=== PATIENT | female | born 1955 | race Caucasian/White ===

== ENCOUNTER 2022-07-13 09:41 | Outpatient (CLI) | payer MEDICARE, SELFPAY ==
[2022-07-13 12:48] LABS: Potassium 3.9 mmol/L (3.4-5.0)
[2022-07-13 12:53] LABS: Alanine Aminotransferase 22 U/L (6-35); Albumin Level 4.2 g/dL (3.5-5.1); Alkaline Phosphatase 54 U/L (38-126); Anion Gap 5 mmol/L (8-16); Aspartate Amino Transferase 46 U/L (14-36); Bilirubin,Total 0.4 mg/dL (0.2-1.3); Blood Urea Nitrogen 21 mg/dL (7-17); Calcium 9.3 mg/dL (8.4-10.2); Carbon Dioxide 33 mmol/L (22-30); Chloride 102 mmol/L (98-107); Cholesterol 178 mg/dL (0-200); Estimated Glomerular Filt Rate > 60; Glucose 83 mg/dL (65-110); HDL Direct 72 mg/dL; Sodium 140 mmol/L (137-145); Triglycerides 55 mg/dL (<150)
[2022-07-13 13:00] LABS: LDL Cholesterol Direct 76 mg/dL
== END 2022-07-13 09:42 | disposition home or self-care (01) ==
LOC: ANHGOSHLAB 09:43
PROVIDERS: PCP Family Medicine; Visit Provider Family Medicine
DX: E78.5 Hyperlipidemia, unspecified (principal); Z13.228 Encounter for screening for other metabolic disorders
CPT/HCPCS: 36415; 80053; 80061

== ENCOUNTER → 2023-01-15 10:34 | Outpatient (CLI) | payer MEDICARE, SELFPAY ==
--- NOTE | ~2023-01-15 | CT_ITS ---
EXAMINATION: CT lung screening DATE: 01/15/2023 10:50 INDICATION: Z87.891 - Personal history of nicotine dependence TECHNIQUE: Computed tomography (CT) of the chest was performed without intravenous contrast. Addition al 3D reconstructions utilizing coronal maximum intensity projection (MIP) were performed. Automated exposure control and iterative reconstruction technique were employed. The dose-length product was 86 .58 mGy-cm. COMPARISON: None FINDINGS: Minimal biapical pleural-parenchymal scarring. 13 x 8 x 6 mm nodular opacity at the posterior sulcus of the left lower lobe most likely representing a small region of round atelectasis immediately adjac ent to a small fat-containing diaphragmatic hernia. Unchanged band of right middle lobe discoid atele ctasis/scarring along the medial side of the major fissure. Additional small amount atelectasis/scarr ing in the anterior right upper lobe along side the minor fissure. A few tiny <4 mm and a 6 mm subsol id nodule cluster in the anterior segment of the left upper lobe. Additional 6 mm groundglass nodule with associated bronchiectasis in the posterior segment of the left upper lobe. No pulmonary edema, p leural effusion or pneumothorax. Heart size is normal. Atherosclerotic coronary artery calcific lesio n. No pericardial effusion. Thoracic aorta is normal in caliber. No pathologically enlarged thoracic lymphadenopathy. Visualized upper abdomen is unremarkable. Mild S-shaped curvature of the thoracic sp ine with mild to moderate spondylosis. IMPRESSION: 1. Lung-RADS category 4A: (Suspicious, 5-15% chance of malignancy) based upon the 13 x 8 x 6 mm left lower lobe nodule. Given the immediately adjacent small fat-containing diaphragmatic hernia however, suspect that this most likely represents associated round atelectasis/scarring. Recommend 3 month fol low-up low-dose noncontrast chest CT . Reviewed, dictated and finalized at location A. IMPRESSION: 1. Lung-RADS category 4A: (Suspicious, 5-15% chance of malignancy) based upon t he 13 x 8 x 6 mm left lower lobe nodule. Given the immediately adjacent small f at-containing diaphragmatic hernia however, suspect that this most likely repre sents associated round atelectasis/scarring. Recommend 3 month follow-up low-do se noncontrast chest CT .
== END ==
PROVIDERS: PCP Family Medicine; Visit Provider Family Medicine
DX: Z12.2 Encounter for screening for malignant neoplasm of respiratory organs (principal); Z87.891 Personal history of nicotine dependence; R91.8 Other nonspecific abnormal finding of lung field
CPT/HCPCS: 71271

== ENCOUNTER 2023-03-11 08:36 | Outpatient (CLI) | payer MEDICARE, SELFPAY | END 2023-03-11 08:37 | disposition home or self-care (01) | LOC: ANHAUDIO 08:37 | PROVIDERS: PCP Family Medicine; Visit Provider Family Medicine | DX: H90.3 Sensorineural hearing loss, bilateral (principal) | CPT/HCPCS: 92557; 92567 ==

== ENCOUNTER → 2023-06-07 10:39 | Outpatient (CLI) | payer MEDICARE, SELFPAY ==
--- NOTE | ~2023-06-07 | CT_ITS ---
EXAMINATION: CT chest high resolution wo co DATE: 06/07/2023 10:59 INDICATION: R91.8 - Other nonspecific abnormal finding of lung field TECHNIQUE: Computed tomography (CT) of the chest was performed without intravenous contrast. Addition al 3D reconstructions utilizing coronal maximum intensity projection (MIP) were performed. Automated exposure control and iterative reconstruction technique were employed. The dose-length product was 16 3.02 mGy-cm. COMPARISON: 01/15/2023 FINDINGS: Unchanged mild biapical pleural-parenchymal scarring. Unchanged small regions of atelectasis and asso ciated mild bronchiectasis at the medial aspect of the right middle lobe and lingula. Near-complete r esolution of the previously noted nodular opacity at the right posterior sulcus with small amount of residual groundglass opacity dislocation likely representing improvement in atelectasis related to a small fat-containing posterior diaphragmatic hernia. Similarly there are small focus of groundglass o pacity at the site of prior more solid-appearing nodular opacities at the anterior right middle lobe which also likely represent atelectasis. Additional interval decrease in cluster of small nodules in the anterior and posterior segments of the left upper lobe. No pulmonary edema or pleural effusion. H eart size is normal. Atherosclerotic coronary artery calcifications. No pericardial effusion. Thoraci c aorta is normal in caliber. No pathologically enlarged thoracic lymphadenopathy. Visualized upper a bdomen is unremarkable. Mild S-shaped curvature of the thoracic spine with mild to moderate spondylos is. IMPRESSION: 1. Near complete resolution of a prior solid nodular opacity at the posterior sulcus of the left lowe r lobe with small amount of residual groundglass opacity suggesting this represented atelectasis. [facility] with low-dose noncontrast chest CT. Reviewed, dictated and finalized at location A. CT[facility] WELDER IMPRESSION: 1. Near complete resolution of a prior solid nodular opacity at the posterior s ulcus of the left lower lobe with small amount of residual groundglass opacity suggesting this represented atelectasis. Recommend resuming annual screening wi low-dose noncontrast chest CT.
== END ==
PROVIDERS: PCP Family Medicine; Visit Provider Family Medicine
DX: R91.8 Other nonspecific abnormal finding of lung field (principal)
CPT/HCPCS: 71250

== ENCOUNTER 2023-07-29 12:34 | Outpatient (CLI) | payer MEDICARE, SELFPAY ==
[2023-07-29 15:58] LABS: Alanine Aminotransferase 15 U/L (6-35); Albumin Level 4.3 g/dL (3.5-5.1); Alkaline Phosphatase 49 U/L (38-126); Anion Gap 5 mmol/L (8-16); Aspartate Amino Transferase 60 U/L (14-36); Bilirubin,Total 0.7 mg/dL (0.2-1.3); Blood Urea Nitrogen 22 mg/dL (7-17); Calcium 9.6 mg/dL (8.4-10.2); Carbon Dioxide 30 mmol/L (22-30); Chloride 103 mmol/L (98-107); Cholesterol 193 mg/dL (0-200); Estimated Glomerular Filt Rate > 60; Glucose 77 mg/dL (65-110); HDL Direct 73 mg/dL; Potassium 4.1 mmol/L (3.4-5.0); Sodium 138 mmol/L (137-145); Triglycerides 89 mg/dL (<150)
[2023-07-29 16:09] LABS: LDL Cholesterol Direct 102 mg/dL
== END 2023-07-29 12:35 | disposition home or self-care (01) ==
LOC: ANHGOSHLAB 12:36
PROVIDERS: PCP Family Medicine; Visit Provider Family Medicine
DX: I10 Essential (primary) hypertension (principal); Z13.220 Encounter for screening for lipoid disorders; Z13.228 Encounter for screening for other metabolic disorders
CPT/HCPCS: 36415; 80053; 80061

== ENCOUNTER 2023-09-16 15:26 | Outpatient (CLI) | payer MEDICARE, SELFPAY ==
--- NOTE | ~2023-09-16 | XR_ITS ---
EXAMINATION: [id number] DATE: 09/16/2023 15:56 INDICATION: Neck pain. TECHNIQUE: 3 views of cervical spine on 4 radiographs were obtained. COMPARISON: None. FINDINGS: There is 4 degrees dextrocurvature of cervical spine. Vertebral body heights are normal. Th ere is moderately decreased disc height at C5-C6 and severely decreased disc height at C6-C7. There i s multilevel severe facet joint osteoarthritis. There is ankylosis of the facet joints at C6-C7. Ther e is mild central canal stenosis at C5-C6. No prevertebral soft tissue swelling. IMPRESSION: 1. Moderate cervical spondylosis. Reviewed, dictated and finalized at location E.
== END 2023-09-16 15:27 ==
PROVIDERS: PCP Family Medicine; Visit Provider Nurse Practitioner
DX: M54.2 Cervicalgia (principal); M43.02 Spondylolysis, cervical region
CPT/HCPCS: 72040

== ENCOUNTER 2024-06-29 01:32 | Day surgery (SDC) | payer MEDICARE, SELFPAY ==
[2024-06-19 12:29] VITALS: BMI 21.2
--- NOTE | 2024-06-26 16:09 | PC.NURSE ---
Spoke with _patient_ regarding medication _Eliquis. Patient verbalizes understanding that the last dose is to be taken on 06/26/24 however she spoke with Dr. Jenkins on Wednesday06/23/24 and he told her she could start holding on Wednesday so she has not taken since sarahy. dose 06/23/24 and the Endoscopist will instruct them when to restart after the procedure.
--- OUTSIDE RECORDS SUMMARY | 2024-06-29 01:34 | XMS_ITS | CONTINUITY OF CARE DOCUMENT ---
Author Name bruno carr Address Unknown Organization [facility] Address [address] [place] [address] Phone [phone] Care Team Providers Care Victorian Literature Professor Name Role Phone Kristopher Plummer MD Unavailable WHIT KAISER DO Unavailable WHIT KAISER DO Unavailable [phone] PROBLEMS Condition Status Date Provider Notes Preoperative cardiovascular evaluation active Whit Alicia Exposure to SARS-associated coronavirus active Lovely Lively Palpitations active Armin Fragoso Chest discomfort active Armin Fragoso Tobacco abuse--quit active Juan Johnstonzai SVT active Armin Fragoso Poor sleep hygiene active Armin Fragoso Hyperlipidemia active Armin Fragoso Atrial fibrillation active Mcihelle Wong NP Anxiety active Michelle Wong NP Carotid bruit active Juan Ahmedzai Elevated blood pressure active Juan Ahmedza i ENCOUNTERS Date Type Provider Location Encounter Diag nosis - In-person encounter Office Visit Kristopher Plummer MD [facility] Tobacco abuse--quitElevated blood pressure - In-person encounter Office Visit Kristopher Plummer MD [facility] Carotid bruit - In-person encounter Office Visit Kristopher Plummer MD [facility] - In-person encounter Office Visit Kristopher Plummer MD [facility] - In-person encounter Office Visit Kristopher Plummer MD [facility] Atrial fibrillationAnxiety - In-person encounter Office Visit Kristopher Plummer MD [facility] - In-person encounter Office Visit Kristopher Plummer MD [facility] - In-person encounter Office Visit Kristopher Plummer MD [facility] PalpitationsChest discomfortTobacco abuse--quitSVTPoor sleep hygieneHyperlipidemia VITAL SIGNS Date Observation Value Provider Body Mass Index (Ratio) 21.43 kg/m2 Mike Plummer MD blood pressure, cuff size regular Ke rri Grrenaldonftiffanie blood pressure, diastolic 90 mm[Hg] Ke rri Bandar blood pressure, systolic 154 mm[Hg] Luis ri Bandar oxygen saturation, oximetry 97 % Ashwini Bandar pulse rate 63 /min Ashwini Jannie [facility] weight E&M 121 [lb_av] Ashwini Jannie [facility] height E&M 63 [in_i] Ashwini Jannie [facility] Body Mass Index (Ratio) 20.72 kg/m2 Juan Cullen blood pressure, cuff size regular Ke rri Gruenenfelder blood pressure, diastolic 70 mm[Hg] Ke rri Gruenenfelder blood pressure, systolic 130 mm[Hg] Luis ri Gruenenfeldreba oxygen saturation, oximetry 97 % Ashwini Elynereji respiratory rate E&M 12 /min Ashwini G ruenenfelder pulse rate 72 /min Ashwini Grmariiae lder weight E&M 117 [lb_av] Ashwini Gruenenfe lder height E&M 63 [in_i] Ashwini Gruenenfe er Body Mass Index (Ratio) 19.66 kg/m2 Camryn alegria Lobo blood pressure, cuff size regular Ke rri Gruenenfelder blood pressure, diastolic 71 mm[Hg] Ke rri Gruenenfelder blood pressure, systolic 111 mm[Hg] Luis ri Gruenenfelder oxygen saturation, oximetry 97 % Ashwini Grpandanevazquezelder respiratory rate E&M 14 /min Ashwini G candaceenenfelder pulse rate 68 /min Ashwini Grpandanenfe er weight E&M 111 [lb_av] Ashwini Grmariiae [facility] height E&M 63 [in_i] Ashwini Grpandanevazqueze er Body Mass Index (Ratio) 20.90 kg/m2 [place] blood pressure, diastolic 70 mm[Hg] nkLog blood pressure, systolic 112 mm[Hg] [place] kLogic blood pressure, cuff size regular Ke rri Gruenenfelder blood pressure, diastolic 70 mm[Hg] Ke rri Gruenenfelder blood pressure, systolic 112 mm[Hg] Luis ri Gruenenfelder oxygen saturation, oximetry 98 % Ashwini Gruenenfelder respiratory rate E&M 14 /min Ashwini G ruenenfelder pulse rate 82 /min Ashwini Gruenenfe er weight E&M 118 [lb_av] Ashwini Gruenenfe lder height E&M 63 [in_i] Ashwini Gruenenfe er Body Mass Index (Ratio) 20.90 kg/m2 Steve dent Maral blood pressure, diastolic 72 mm[Hg] Li nkLogic blood pressure, systolic 112 mm[Hg] [place] kLogic blood pressure, cuff size regular Ke rri Gruenenfelder blood pressure, diastolic 72 mm[Hg] Ke rri Gruenenfelder blood pressure, systolic 112 mm[Hg] Luis ri Gruenenfelder oxygen saturation, oximetry 98 % Ashwini Gruenenfelder respiratory rate E&M 16 /min Ashwini Perdue [facility] pulse rate 91 /min Ashwini Grpandanenfe er weight E&M 118 [lb_av] Ashwini Gruenenfe er height E&M 63 [in_i] Ashwini Gruenenfe er Body Mass Index (Ratio) 21.61 kg/m2 [place] blood pressure, diastolic 60 mm[Hg] Li nkLogic blood pressure, systolic 110 mm[Hg] [place] kLogic blood pressure, diastolic 60 mm[Hg] Ahsan Alejandroenson blood pressure, systolic 110 mm[Hg] Alannah Garcia oxygen saturation, oximetry 97 % Home Garcia respiratory rate E&M 16 /min Harsh Garcia pulse rate 67 /min Home neves weight E&M 122 [lb_av] HomeGia Zelaya nson height E&M 63 [in_i] Home neves Body Mass Index (Ratio) 21.61 kg/m2 [place] /21 blood pressure, cuff size regular Cy christal Sotelo blood pressure, diastolic 64 mm[Hg] Jd Sotelo blood pressure, systolic 118 mm[Hg] Chen Sotelo pulse rate 100 /min Maureen way oxygen saturation, oximetry 97 % Maureen Sotelo respiratory rate E&M 16 /min Maureen Sotelo weight E&M 122 [lb_av] Maureen Rivera l height E&M 63 [in_i] Maureen Rivera l weight E&M 122 [lb_av] Yamilet Potter Body Mass Index (Ratio) 21.61 kg/m2 [place] blood pressure, cuff size regular Ke rri Gruenenfelder blood pressure, diastolic 72 mm[Hg] Ke rri Gruenenfelder blood pressure, systolic 122 mm[Hg] Ker ri Padmininfelder oxygen saturation, oximetry 97 % Ashwini Bandar respiratory rate E&M 16 /min Ashwini Iron turcioseldreba pulse rate 108 /min Ashwini Padmininfe lder weight E&M 122 [lb_av] Ashwini Elynenfe lder height E&M 63 [in_i] Ashwini Gruenenfe lder ALLERGIES No Known Drug Allergies RESULTS Date Observation Value Provider Reference Range Interpretation Location 3 activated partial thromboplastin time (aPTT) 25 s [facility] 24-33 3 prothrombin time (patient) 10.4 s [facility] 9.1-12.0 3 international normalized ratio (INR) 1.0 [facility] 0.9-1.2 3 calcium, serum 9.9 mg/dL [facility] 8.7-10.3 3 carbon dioxide, venous blood 26 mmol/L [facility] 20-29 3 chloride, serum 105 mmol/L [facility] 96-106 3 potassium, serum 4.1 mmol/L [facility] 3.5-5.2 3 sodium, serum 143 mmol/L [facility] 680-229 1912/06/0 3 urea nitrogen/creatinine ratio, serum 13 [facility] 12-28 3 eGFR if 75 mL/min/{1. 73_m2} [facility] >59 3 eGFR if not 65 mL/min/{1. 73_m2} [facility] >59 3 creatinine, serum 0.92 mg/dL [facility] 0.57-1.00 3 urea nitrogen, blood 12 mg/dL [facility] 8-27 3 blood glucose, random 81 mg/dL [facility] 65-99 3 basophil count, absolute 0.0 x10E3/uL [facility] 0.0-0.2 3 Eosinophil Absolute Count 0.2 X10E3/UL [facility] 0.0-0.4 3 monocyte count, blood, automated 0.4 X10E3/UL [facility] 0.1-0.9 3 lymphocyte count, blood, automated 2.0 X10E3/UL [facility] 0.7-3.1 3 Absolute Neutrophils 2.4 X10E3/UL [facility] 1.4-7.0 3 basophils as percent of blood leukocytes 1 % [facility] Not Estab. 3 eosinophils as percent of blood leukocytes 3 % [facility] Not Estab. 3 monocytes as percent of blood leukocytes 8 % [facility] Not Estab. 3 lymphocytes as percent of blood leukocytes 40 % [facility] Not Estab. 3 neutrophils as percent of blood leukocytes 48 % [facility] Not Estab. 3 platelet count 277 X10E3/UL [facility] 107-782 2278/06/0 3 red blood cell distribution width 12.8 % [facility] 11.7-15.4 3 mean corpuscular hemoglobin concentration, RBC 32.4 G/DL [facility] 31.5-35.7 3 mean corpuscular hemoglobin, RBC 29.4 pg [facility] 26.6-33.0 3 mean corpuscular volume, RBC 91 fL [facility] 79-97 3 hematocrit, blood 44.5 % [facility] 34.0-46.6 3 hemoglobin, blood 14.4 g/dL [facility] 11.1-15.9 3 erythrocyte (RBC) count 4.90 X10E6/UL [facility] 3.77-5.28 3 leukocyte count, blood 4.9 X10E3/UL [facility] 3.4-10.8 HISTORY OF MEDICATION USE Medication Status Instructions Dates Provider Indications Com ments magnesium oxide 400 mg (241.3 mg magnesium) tablet active TAKE 1 TABLET TWICE DAILY Debra Rushing Eliquis 5 mg tablet active Take 1 tablet by mouth twice a day Ashwini Portillo magnesium oxide 400 mg (241.3 mg magnesium) tablet completed Take 1 tablet by mouth twice a day - Debra Rushing losartan 25 mg tablet active Take 1 tablet by mouth once a day Juan Lairdi Eliquis 5 mg tablet completed TAKE 1 TABLET TWICE DAILY - Ashwini Portillo magnesium oxide 400 mg (241.3 mg magnesium) tablet completed TAKE 1 TABLET TWICE DAILY - Ashwini Portillo pantoprazole 40 mg tablet,delayed release (DR/EC) active as needed Juan Cullen diltiazem HCl 30 mg tablet active TAKE 1 TABLET EVERY 12 HOURS ( TWICE DAILY ) Ashwini Portillo Eliquis 5 mg tablet completed Take 1 tablet twice a day - Michelle Wong NP diltiazem HCl 30 mg tablet completed 1 tablet by mouth twice a day - Arcelia Bermeo NP magnesium oxide 400 mg (241.3 mg magnesium) tablet completed 1 tablet twice a day - Whit Dicksonmelissa ASPIRIN 81 81 MG ORAL TABLET DELAYED RELEASE completed One Tab By Mouth Daily - Home Garcia cholecalciferol (vitamin D3) 125 mcg (5,000 unit) capsule active 1 tablet by mouth once a day Ashwini Portillo MULTIVITAMINS CAPS active 1 tablet once a day Ashwini Portillo Lexapro 10 mg tablet active once a day Ashwini Portillo alprazolam 0.5 mg tablet completed Take 1 tablet by mouth twice a day as needed - Michelle Wong NP Crestor 10 mg tablet active 1 tablet once a day Ashwini Portillo SOCIAL HISTORY Date Observation Value Provider smoking/tobacco cess ation, patient education and counseling yes Juan ish smoking, year quit [address] number of years as a smoker 40 a Juan ish smoking history, tot al pack/day 1/2 ppd Juan ish cigarette use yes Juan ish smoking status Current every day smoker R anna Cullen social history reviewed E&M revi ewed - no changes required Juan Cullen social history E&M S moking History: P atient currently smokes every day. Juan Cullen social history reviewed E&M revi ewed - no changes required Juan ish cigarette use yes Ashwini abraham smoking status Current every day smoker K emerald Portillo smoking/tobacco cess ation, patient education and counseling yes Ashwini Portillo smoking, year quit 2020 Ashwini velazquez number of years as a smoker 40 a Ashwini Portillo smoking history, tot al pack/day 1/2 ppd Ashwini Portillo cigarette use yes Ashwini abraham smoking status Current every day smoker K emerald Portillo smoking, year quit 2020 Ashwini velazquez number of years as a smoker 40 a Ashwini Portillo smoking history, tot al pack/day 1/2 ppd Ashwini Portillo cigarette use yes Ashwini abraham smoking status Current every day smoker K emerald Portillo social history reviewed E&M revi ewed - no changes required Arcelia Bermeo NP smoking, year quit 2020 Home Garcia number of years as a smoker 40 a Home Garcia smoking history, tot al pack/day 1/2 ppd Home Garcia cigarette use yes Home Alejandro jericho smoking status Former smoker Home Bravo camilo number of grandchildren Kristopher Alicia social history E&M S moking History: P micky currently smokes every day. P atleno has been counseled to quit. Whit Alicia social history reviewed E&M revi ewed - no changes required Whit Alicia smoking/tobacco cess ation, patient education and counseling yes Whit Alicia number of years as a smoker 40 a Maureen Sotelo smoking history, tot al pack/day 1/2 ppd Maureen Sotelo cigarette use yes Maureen hawley smoking status Current every day smoker C brianasusi Deepak social history E&M S moking History: Oz weeks currently smokes every day. Armin [place] social history reviewed E&M revi ewed - no changes required Armin Fragoso number of years as a smoker 40 a Ashwini Moralesrenaldovazqueztiffaniereba smoking history, tot al pack/day 1/2 ppd Ashwini Portillo cigarette use yes Ashwini abraham smoking status Current every day smoker K emerald Rocreba INSURANCE PROVIDERS Payer name Policy type / Coverage type [employer] PPO HMO [id number] ADVANCE DIRECTIVES Name Date DISCUSSED - NO DECISION MADE TREATMENT PLAN Date Name Performer [id number],C,P micky was advised to stop smoking. [facility] [id number],C, n o episodes [facility] [id number],C, H er updated medication list for this problem includes: Crestor 10 Mg Tablet (Rosuvastatin) ..... 1 tablet once a day [facility] [id number],C,r are episodes [facility] [id number],C, N ormal routine stress test with good exercise capacity 10/02/20. E cho EF normal 2021 She denies any chest pain [facility] [id number],C, s /p EPS with ablation 2020. Remains in NSR. Eliquis for AC. She wore holter, pending results [facility] [id number],C, H er updated medication list for this problem includes: Crestor 10 Mg Tablet (Rosuvastatin) ..... 1 tablet once a day Juan Johnstonzai [id number],C,No sxs curren rk Laird [id number],C, N ormal routine stress test with good exercise capacity 10/02/20. She denies any chest pain Juan estrella [id number],C,None seen on recent tele Juanyolanda Laird [id number],C, s /p EPS with ablation. Remains in NSR. Eliquis for AC. Juan Cullen [id number],S,R epeat monitor in one year. Her updated medication list for this problem includes: Diltiazem Hcl 30 Mg Tablet (Diltiazem hcl) ..... 1 tablet by mouth twice a day Michelle Marvin WAITE [id number],S, Michelle Rouse [place] POOLING OPERATOR [id number],S, Michelle Rouse [place] POOLING OPERATOR [id number],B, Michelle Rouse [place] POOLING OPERATOR [id number],C,will refill o ne month Xanax Michelle Wong RAVINDRA [id number],C,s /p EPS with ablation. Remains in NSR. Eliquis for AC. Will check one week monitor. No evidence of an aneurysm of the abdominal aorta and common iliac arteries. Plaque is demonstrated throughout Michelle Marvin WAITE [id number],S, Michelle Rouse [place] POOLING OPERATOR [id number],S,T he Patient was reencouraged to stop smoking. Michelle Marvin WAITE [id number],C, C essation strongly encouraged. Armin Fragoso [id number],C, N ormal routine stress test with good exercise capacity 10/02/20. Armin Fragoso [id number],B, T oscar monitor showed SR with SVT. S /p EPS and ablation for clearly documented multiple recurrences of arrhythmia. Found to be in atrial fibrillation during procedure and underwent synchronized cardioversion prior to ablation w/o complication Diltiazem 30mg BID, eliquis SR on EKG today Armin Fragoso [id number],B,Resolved post ablation and EPS Arcelia Bermeo POOLING OPERATOR [id number],B, T oscar monitor showed SR with SVT. S /p EPS and ablation for clearly documented multiple recurrences of arrhythmia. Diltiazem 30mg BID, eliquis SR on EKG today Arcelia Bermeo POOLING OPERATOR Telehealth - Cleared for colonoscopy. letter to be sens MARTHA Whit Alicia Telehealth - Cleared for colonoscopy. letter to be sens MARTHA: c leared for colonbsocopy h old eliquis starting today Whit Alicia Electrophysiology:Sh graham has mild regurgitation on Echo today, BP elevated as well, will start Losartan 25 mg for BP control. Kristopher Plummer MD Electrophysiology: n o episodes Her updated medication list for this problem includes: Diltiazem Hcl 30 Mg Tablet (Diltiazem hcl) ..... Take 1 tablet every 12 hours ( twice daily ) Kristopher Plummer MD Electrophysiology:Ex tensive review of the pertinent previous and curent labs , EKGs, cardiac tesing and imaging data was done by Dr. Elian Mak his visit has been a part of the consistent, comprehensive, and ongoing management of the chronic medical condition(s) listed above for the patient. s/p EPS with ablation 2020. Remains in NSR. Eliquis for AC. Orders: E KG (CPT-79802) M onitor - Telemetry (Mobile Cardiac) (CPT-58742) A trista Duplex Ultrasound (CPT-45376) 9 7567 MOD 30-39min (CPT-42222) C omplex e/m visit add on (G2211) Kristopher Plummer MD Electrophysiology:Sh e has mild regurgitation on Echo today, BP elevated as well, will start Losartan 25 mg for BP control. Orders: C omplete Echo (86340) A trista Duplex Ultrasound (CPT-99763) 9 9214 MOD 30-39min (CPT-91700) C omplex e/m visit add on (G2) Juan Johnstonzai Electrophysiology: H er updated medication list for this problem includes: Crestor 10 Mg Tablet (Rosuvastatin) ..... 1 tablet once a day Juanyolanda Johnstonzai [facility] r are [facility]: N ormal routine stress test with good exercise capacity 10/02/20. E cho EF normal 2021 She denies any chest pain [facility]: n o episodes Orders: M onitor - Telemetry (Mobile Cardiac) (CPT-78478) A trista Duplex Ultrasound (CPT-82653) 9 9214 MOD 30-39min (CPT-10483) C omplex e/m visit add on (G2) Juan Johnstonzai Electrophysiology:Th is visit has been a part of the consistent, comprehensive, and ongoing management of the chronic medical condition(s) listed above for the patient. s/p EPS with ablation 2020. Remains in NSR. Eliquis for AC. Orders: E KG (CPT-92585) M onitor - Telemetry (Mobile Cardiac) (CPT-05656) A trista Duplex Ultrasound (CPT-54848) 9 9214 MOD 30-39min (CPT-48821) C omplex e/m visit add on () Juan Johnstonzai Electrophysiology:Maxx qureshi was advised to stop smoking. [facility] n o episodes [facility]: H er updated medication list for this problem includes: Crestor 10 Mg Tablet (Rosuvastatin) ..... 1 tablet once a day [facility]ra re episodes [facility]: N ormal routine stress test with good exercise capacity 10/02/20. E cho EF normal 2021 She denies any chest pain [facility]: s /p EPS with ablation 2020. Remains in NSR. Eliquis for AC. She wore holter, pending results [facility] Electrophysiology: H er updated medication list for this problem includes: Crestor 10 Mg Tablet (Rosuvastatin) ..... 1 tablet once a day [facility] Electrophysiology:No sxs current ly [facility] Electrophysiology: N ormal routine stress test with good exercise capacity 10/02/20. She denies any chest pain [facility] Electrophysiology:None seen on r ecent tele [facility] Electrophysiology: s /p EPS with ablation. Remains in NSR. Eliquis for AC. [facility] Electrophysiology:Re peat monitor in one year. Her updated medication list for this problem includes: Diltiazem Hcl 30 Mg Tablet (Diltiazem hcl) ..... 1 tablet by mouth twice a day Michelle Wong NP Electrophysiology Michelle hu NP Electrophysiology Michelle hu NP Electrophysiology Michelle Napoleon hu NP Electrophysiology Fo llow up :will refill one month Xanax Michelle Wong NP Electrophysiology Fo llow up :s/p EPS with ablation. Remains in NSR. Eliquis for AC. Will check one week monitor. No evidence of an aneurysm of the abdominal aorta and common iliac arteries. Plaque is demonstrated throughout Michelle Wong NP Electrophysiology Follow up Masood Wong NP Electrophysiology Fo llow up :The Patient was reencouraged to stop smoking. Michelle Wong NP Electrophysiology: C essation strongly encouraged. Armin Fragoso Electrophysiology: N ormal routine stress test with good exercise capacity 10/02/20. Armin Fragoso Electrophysiology: T oscar monitor showed SR with SVT. S /p EPS and ablation for clearly documented multiple recurrences of arrhythmia. Found to be in atrial fibrillation during procedure and underwent synchronized cardioversion prior to ablation w/o complication Diltiazem 30mg BID, eliquis SR on EKG today Armin Fragoso Electrophysiology:Resolved post ablation and EPS Arcelia Bermeo POOLING OPERATOR Electrophysiology: T oscar monitor showed SR with SVT. S /p EPS and ablation for clearly documented multiple recurrences of arrhythmia. Diltiazem 30mg BID, eliquis SR on EKG today Arcelia Bermeo POOLING OPERATOR Electrophysiology fo llow up : T oscar monitor showed SR with SVT. Will arrange for pre-ablation CT and EP study with ablation for clearly documented multiple recurrences of arrhythmia. Her updated medication list for this problem includes: Diltiazem Hcl 30 Mg Oral Tablet (Diltiazem hcl) ..... One tab by mouth every 8 hours (three times daily) Aspirin 81 81 Mg Oral Tablet Delayed Release (Aspirin) ..... One tab by mouth daily Orders: 9 9214 MOD 30-39min (CPT-15476) C T Cardiac with contrast (Pre-Ablation) (CPT-97145) Armin Fragoso Electrophysiology fo llow up : C essation strongly encouraged. Whit Alicia Electrophysiology fo llow up : N o JACINTA on sleep study 10/14/20. Whit Alicia Electrophysiology fo llow up : N ormal routine stress test with good exercise capacity 10/02/20. Whit Alicia Electrophysiology Ho spital Follow up 15: p oor quality of sleep, frfequent awaekinings, fatigue O rders: S leep Study Home (CPT-17541) Vickikristal [place] Electrophysiology Ho spital Follow up 15: H er updated medication list for this problem includes: Diltiazem Hcl 30 Mg Oral Tablet (Diltiazem hcl) ..... One tab by mouth every 8 hours (three times daily) Aspirin 81 81 Mg Oral Tablet Delayed Release (Aspirin) ..... One tab by mouth daily Orders: E KG (CPT-67347) S tress Routine (CPT-12087) M onitor - Telemetry (Mobile Cardiac) (CPT-74829) Alejobaljit [place] Elect[facility]iology Ho spital Follow up 15: f ound to have SVT in ER, resolved with diltiazm S tart diltiazem 30 tid and see if she tolerates Her updated medication list for this problem includes: Diltiazem Hcl 30 Mg Oral Tablet (Diltiazem hcl) ..... One tab by mouth every 8 hours (three times daily) Aspirin 81 81 Mg Oral Tablet Delayed Release (Aspirin) ..... One tab by mouth daily Orders: S tress Routine (CPT-02025) M onitor - Telemetry (Mobile Cardiac) (CPT-22825) Armin [place] Date Name Aorta Duplex Ultraso und Carotid Duplex Bilat eral Complete Echo Monitor - Telemetry (Mobile Cardiac) Complete Echo Complete Echo Carotid Duplex Bilat eral Monitor - Telemetry (Mobile Cardiac) Aorta Duplex Ultraso und Complete Echo MAGNESIUM TSH, free T4, total T3 CBC (INCLUDES DIFF/P LT) HEMOGLOBIN A1c LIPID PANEL COMPREHENSIVE METABO LIC PANEL, W/EGFR Monitor - Telemetry (Mobile Cardiac) Monitor - Telemetry (Mobile Cardiac) COVID19 nasal swab ( LC) PARTIAL THROMBOPLAST IN TIME, ACTIVATED PROTHROMBIN TIME WIT H INR CBC (INCLUDES DIFF/P LT) BASIC METABOLIC PANE L W/EGFR ABLATION w/ Anesthes ia EP Study CT Cardiac with cont rast (Pre-Ablation) Monitor - Telemetry (Mobile Cardiac) Stress Routine Sleep Study Home HISTORY OF PROCEDURES Procedure Date Procedure Name Provider Procedure Notes S tatus Complex e/m visit ad d on Kristopher Plummer MD completed Complex e/m visit ad d on Kristopher Plummer MD completed EKG Kristopher Pulmmer MD comp leted EKG Kristopher Plummer MD comp leted EKG Kristopher Plummer MD comp leted EKG Kristopher Plummer MD comp leted EKG Kristopher Plummer MD comp leted Event Monitor Kristopher Plummer MD c ompleted EKG Kristopher Plummer MD comp leted EKG Kristopher Plummer MD comp leted
[2024-06-29 10:06] VITALS: BP 109/89; PULSE 83; RESP 16; TEMP 36.6; O2SAT 99; BMI 20.7
--- NOTE | 2024-06-29 10:11 | P.PNAN_ITS ---
Anes - Initial Pre Proc Eval Procedure: Operation Date: 06/29/24 11:30 Proposed Procedures p Screening Colonoscopy - Watson Pimentel MD Date/Time: 06/29/24 10:11 Surgeon: Watson Pimentel MD Pre Op Diagnosis: screening malignant neoplasm colon Patient Data Age: 68 Gender: F Height: 1.6 m Weight: 53.1 kg Last Vital Signs Temp 36.6 C 06/29/24 10:06 Pulse 83 06/29/24 10:06 Resp 16 06/29/24 10:06 BP 109/89 06/29/24 10:06 Pulse Ox 99 06/29/24 10:06 O2 Del Method Room Air 06/29/24 10:06 Allergies Allergy/AdvReac Type Severity Reaction Status Date / Time oak tree Allergy Unknown Unknown Uncoded 06/29/24 10:04 Home Medications ?Medication ?Instructions ?Recorded ?Confirmed ?Type apixaban 5 mg tablet (Eliquis) 5 mg PO BID 07/11/21 06/29/24 History diltiazem HCl 30 mg tablet 30 mg PO BID 07/11/21 06/29/24 History magnesium oxide 400 mg (241.3 mg 400 mg PO BID 07/13/22 06/29/24 History magnesium) tablet calcium carbonate (Calcium 600) 600 mg PO BID 01/11/23 06/29/24 History cholecalciferol (vitamin D3) 25 25 mcg PO BID 01/11/23 06/29/24 History mcg (1,000 unit) capsule vvevhitt-xsclpyh-uztq-lutein tablet 1 tablet PO DAILY 01/11/23 06/29/24 History alendronate 70 mg tablet 70 mg PO WEEKLY 01/28/24 06/29/24 History alprazolam 0.5 mg tablet 0.5 mg PO DAILY #90 tabs 02/18/24 06/29/24 Rx escitalopram oxalate 10 mg tablet 10 mg PO DAILY #90 tabs 02/18/24 06/29/24 Rx rosuvastatin 10 mg tablet (Crestor) 10 mg PO DAILY #90 tabs 03/07/24 06/29/24 Rx losartan 25 mg tablet 25 mg PO DAILY 06/19/24 06/29/24 History Patient hx anesthesia problems: none Family hx anesthesia problems: none Results Review: All pre-operative results and documents have been reviewed as part of the pre- operative evaluation. [facility] Past Medical History Medical History (Updated 06/29/24 @ 10:11 by Toni Cox DO) Atrial fibrillation Hyperlipidemia Other hyperlipidemia Social History Social History Smoking status: Former smoker Second hand tobacco smoke exposure: No Alcohol intake: never Substance use: never Substance use type: does not use Lack of Transportation: No Lack of Food: Never True Current Housing: I Have Housing Concerned About Future Housing: No Difficulty Paying Gas/Electric Bills: No Difficulty Paying for Meds: No Currently Unemployed: No Education: High School Diploma/GED Difficulty w/ Childcare or Family Care: No Gender identity (if verbalized by the patient): Female Spiritual care concerns: No Anes - Eval Final PreProcedure Day of Procedure 06/29/24 10:11 Patient weight: normal Heart: regular rate and rhythm Lungs: clear to auscultation and normal air movement Airway: Mallampati scale class II Neurological: alert and oriented Last oral intake: >/= 8 hours ASA classification: III Emergent: no Anesthetic plan: proceed Anesthesia type and monitoring: general GIVS and standard monitoring Results Review: All pre-operative results and documents have been reviewed as part of the pre- operative evaluation. Informed Consent: The patient's anesthetic plan and its attendant risks and benefits were discussed with the patient/family/POA. Questions were solicited and answers provided to the satisfaction of the patient/family/POA.
[2024-06-29] MEDS: LACTATED RINGERS 1,000 ML 150 ML IV CONT (10:14)
--- NOTE | 2024-06-29 10:33 | PM.HPGS ---
History of Present Illness History of Present Illness Consent: Risks, benefits, and alternatives have been discussed and questions answered. Patient agrees to proceed with procedure. Chief complaint: screening malignant neoplasm colon Narrative: Sae Lindo is a 68 year old female here for screening colonoscopy, last one 10 years ago Review of Systems Review of Systems: All systems reviewed & are unremarkable except as noted in HPI and below PMFSH Past Medical History Medical History (Updated 06/29/24 @ 10:35 by Watson Pimentel MD) Colon cancer screening Atrial fibrillation Hyperlipidemia Other hyperlipidemia Social History Social History Smoking status: Former smoker Second hand tobacco smoke exposure: No Alcohol intake: never Substance use: never Substance use type: does not use Lack of Transportation: No Lack of Food: Never True Current Housing: I Have Housing Concerned About Future Housing: No Difficulty Paying Gas/Electric Bills: No Difficulty Paying for Meds: No Currently Unemployed: No Education: High School Diploma/GED Difficulty w/ Childcare or Family Care: No Gender identity (if verbalized by the patient): Female Spiritual care concerns: No Meds Home Medications and Allergies Home Medications ?Medication ?Instructions ?Recorded ?Confirmed ?Type apixaban 5 mg tablet (Eliquis) 5 mg PO BID 07/11/21 06/29/24 History diltiazem HCl 30 mg tablet 30 mg PO BID 07/11/21 06/29/24 History magnesium oxide 400 mg (241.3 mg 400 mg PO BID 07/13/22 06/29/24 History magnesium) tablet calcium carbonate (Calcium 600) 600 mg PO BID 01/11/23 06/29/24 History cholecalciferol (vitamin D3) 25 25 mcg PO BID 01/11/23 06/29/24 History mcg (1,000 unit) capsule rsvxemca-jmscrah-llrz-lutein tablet 1 tablet PO DAILY 01/11/23 06/29/24 History alendronate 70 mg tablet 70 mg PO WEEKLY 01/28/24 06/29/24 History alprazolam 0.5 mg tablet 0.5 mg PO DAILY #90 tabs 02/18/24 06/29/24 Rx escitalopram oxalate 10 mg tablet 10 mg PO DAILY #90 tabs 02/18/24 06/29/24 Rx rosuvastatin 10 mg tablet (Crestor) 10 mg PO DAILY #90 tabs 03/07/24 06/29/24 Rx losartan 25 mg tablet 25 mg PO DAILY 06/19/24 06/29/24 History Allergies Allergy/AdvReac Type Severity Reaction Status Date / Time oak tree Allergy Unknown Unknown Uncoded 06/29/24 10:04 Vital Signs Vital Signs - 24 hr 06/29/24 10:06 Temperature 97.9 F Pulse Rate 83 Respiratory Rate 16 Blood Pressure 109/89 Pulse Oximetry 99 Oxygen Delivery Room Air Exam Const: General: comfortable and no acute distress HENMT: Face/Nose/Sinus: Normal nares present Eyes: General: appearance normal, both eyes and all related structures Neck: Neck: no JVD Resp: Auscultation: clear to auscultation bilaterally Cardio: Rate: regular rate Rhythm: regular rhythm GI: Inspection: non-distended GI Palp: Yes Soft to palpation Skin: General skin exam: normal color Neuro: General: gait normal Speech: normal speech Extrem: General: normal to inspection Psych: Mental Status: mental status grossly normal Assessment and Plan Assessment and plan (1) Colon cancer screening: Code(s): Z12.11 - Encounter for screening for malignant neoplasm of colon Status: Acute Assessment and Plan: colonoscopy
[2024-06-29 10:46] VITALS: BP 94/59; PULSE 73; RESP 19; O2SAT 98
[2024-06-29 10:56] VITALS: BP 96/63; PULSE 74; RESP 18; O2SAT 99
[2024-06-29 11:06] VITALS: BP 123/98; PULSE 70; RESP 13; O2SAT 99
== END 2024-06-29 11:20 | disposition home or self-care (01) ==
PROVIDERS: PCP Nurse Practitioner; Referring Provider Family Medicine; Visit Provider Internal Medicine Gastroenterology
PROC: 0DJD8ZZ Inspection of Lower Intestinal Tract, Via Natural or Artificial Opening Endoscopic (ICD-10-PCS; CPT 45378; principal; 2024-06-29 11:30)
DX: Z12.11 Encounter for screening for malignant neoplasm of colon (principal)
CPT/HCPCS: G0121; J2704; J7120

== ENCOUNTER 2024-07-17 11:48 | Outpatient (CLI) | payer MEDICARE, SELFPAY ==
[2024-07-17 13:51] LABS: Hematocrit 42.3 % (37.0-47.0); Hemoglobin 13.4 g/dL (12.0-15.0); Mean Corpuscular HGB Conc 31.7 g/dl (32-36); Mean Corpuscular Hemoglobin 29.3 pg (26-34); Mean Corpuscular Volume 92.6 fl (80-100); Mean Platelet Volume 10.6 fl (7.4-10.4); Platelet Count Result 262 k/mm3 (150-375); Red Blood Count 4.57 M/mm3 (4.2-5.4); Red Cell Distribution Width 13.3 % (11.5-14.5); White Blood Count 5.2 K/mm3 (4.5-10.0)
[2024-07-17 14:46] LABS: Alanine Aminotransferase 19 U/L (6-35); Albumin Level 4.5 g/dL (3.5-5.1); Alkaline Phosphatase 40 U/L (38-126); Anion Gap 5 mmol/L (4-12); Aspartate Amino Transferase 34 U/L (14-36); Bilirubin,Total 0.6 mg/dL (0.2-1.3); Blood Urea Nitrogen 18 mg/dL (7-17); Carbon Dioxide 34 mmol/L (22-30); Chloride 103 mmol/L (98-107); Cholesterol 185 mg/dL (0-200); Estimated Glomerular Filt Rate > 60; Glucose 85 mg/dL (65-110); HDL Direct 87 mg/dL; Potassium 4.5 mmol/L (3.4-5.0); Sodium 142 mmol/L (137-145); Triglycerides 88 mg/dL (<150)
[2024-07-17 14:58] LABS: LDL Cholesterol Direct 84 mg/dL
[2024-07-17 15:46] LABS: Vitamin D 25 Hydroxy 63.6 ng/mL
== END 2024-07-17 11:49 | disposition home or self-care (01) ==
LOC: ANHGOSHLAB 11:49
PROVIDERS: PCP Family Medicine; Visit Provider Nurse Practitioner
DX: E78.5 Hyperlipidemia, unspecified (principal); E78.00 Pure hypercholesterolemia, unspecified; E55.9 Vitamin D deficiency, unspecified; L65.9 Nonscarring hair loss, unspecified; I48.91 Unspecified atrial fibrillation
CPT/HCPCS: 36415; 80053; 80061; 82306; 84443; 85027

== ENCOUNTER 2024-07-24 10:42 | Outpatient (CLI) | payer MEDICARE, SELFPAY ==
--- NOTE | ~2024-07-24 | CT_ITS ---
CT Scan of the Chest without Contrast: Clinical Indication: Lung cancer screening, nicotine dependence Technique: Contiguous sections were acquired throughout the chest without intravenous contrast. Dose reduction technique was used on this scan by utilizing automated exposure control and iterative recon struction technique. The dose-length product (DLP) was 87.77 mGy-cm. COMPARISON: 06/07/2023 Findings: There is no evidence of any significant mediastinal, hilar or axillary lymphadenopathy. The mediastin al soft tissues appear normal. There is no evidence of pleural or pericardial effusion. There are focal tree-in-bud opacities in the peripheral right upper lobe. There is chronic scarring a nd mild bronchiectatic change in the right middle lobe and lingula with minimal tree-in-bud opacities in the right middle lobe as well. Images through the upper abdomen reveal no abnormalities. Impression: Lung RADS 2: Benign appearance. 12 month follow-up screening CT advised. Findings compatible with acute on chronic small airways infection, as above. Reviewed, dictated and finalized at location . H OVEN OPERATOR Impression: Lung RADS 2: Benign appearance. 12 month follow-up screening CT advised. Findings compatible with acute on chronic small airways infection, as above.
== END 2024-07-24 10:43 | disposition home or self-care (01) ==
LOC: GOSHIMG 10:42
PROVIDERS: PCP Nurse Practitioner; Visit Provider Nurse Practitioner
DX: Z12.2 Encounter for screening for malignant neoplasm of respiratory organs (principal); Z87.891 Personal history of nicotine dependence
CPT/HCPCS: 71271

== ENCOUNTER 2024-07-24 11:00 | Outpatient (CLI) | payer MEDICARE, SELFPAY ==
--- OUTSIDE RECORDS SUMMARY | 2024-07-24 12:45 | XMS_ITS | CONTINUITY OF CARE DOCUMENT ---
Author Name bruno carr Address Unknown Organization [facility] Address [address] [place] [address] Phone [phone] Care Team Providers Care Admissions Advisor Name Role Phone Kristopher Plummer MD Unavailable WHIT KAISER DO Unavailable WHIT KAISER DO Unavailable PROBLEMS Condition Status Date Provider Notes Preoperative cardiovascular evaluation active Whit Alicia Exposure to SARS-associated coronavirus active Lovely Lively Palpitations active Armin Fragoso Chest discomfort active Armin Fragoso Tobacco abuse--quit active Juan Ahvictoriazai SVT active Armin Fragoso Poor sleep hygiene active Armin Fragoso Hyperlipidemia active Armin Fragoso Atrial fibrillation active Michelle Wong NP Anxiety active Michelle Wong NP Carotid bruit active Juan Ahmedzai Elevated blood pressure active Juan Ahmedza i ENCOUNTERS Date Type Provider Location Encounter Diag nosis - In-person encounter Office Visit Kristopher Plummer MD [facility] Tobacco abuse--quitElevated blood pressure - In-person encounter Office Visit Kristopher Plummer MD [facility] Carotid bruit - In-person encounter Office Visit Kristopher Plummer MD [facility] - In-person encounter Office Visit Kristopher Plummer MD [facility] - In-person encounter Office Visit Kristopher Plummer MD [facility] Atrial fibrillationAnxiety - In-person encounter Office Visit Kristopher Plummer MD [facility] - In-person encounter Office Visit Kristopher Plummer MD [facility] - In-person encounter Office Visit Kristopher Plummer MD [facility] PalpitationsChest discomfortTobacco abuse--quitSVTPoor sleep hygieneHyperlipidemia VITAL SIGNS Date Observation Value Provider Body Mass Index (Ratio) 21.43 kg/m2 Miek Plummer MD blood pressure, cuff size regular Ke rri Grrenaldonftiffanie blood pressure, diastolic 90 mm[Hg] Ke rri Bandar blood pressure, systolic 154 mm[Hg] Luis ri Bandar oxygen saturation, oximetry 97 % Ashwini Bandar pulse rate 63 /min Ashwini Jannie [facility] weight E&M 121 [lb_av] Ashwini Jannie [facility] height E&M 63 [in_i] Ashwini Jannie [facility] Body Mass Index (Ratio) 20.72 kg/m2 Juan [...] er weight E&M 111 [lb_av] Ashwini Grmariiae [facility] height E&M 63 [in_i] Ashwini Grpandanevazqueze er [...] respiratory rate E&M 16 /min Ashwini [facility] pulse rate 91 /min Ashwini Grpandanenfe [...] 3.5-5.2 3 sodium, serum 143 mmol/L [employer] [id number] 3780/06/0 3 urea nitrogen/creatinine ratio, serum 13 [employer] [...] Estab. 3 platelet count 277 X10E3/UL [employer] [phone]/06/0 3 red blood cell distribution width 12.8 [...] Payer name Policy type / Coverage type [place] [employer] ID [employer] PPO HMO [id number] ADVANCE DIRECTIVES Name Date DISCUSSED - NO DECISION MADE TREATMENT PLAN Date Name Performer [id number],C,P micky was advised to stop smoking. [facility] [id number],C, n o episodes [facility] [id number],C, H er updated medication list for this problem includes: Crestor 10 Mg Tablet (Rosuvastatin) ..... 1 tablet once a day [facility] [id number],C,r are episodes [facility] [id number],C, N ormal routine stress test with good exercise capacity 10/02/20. E cho EF normal 2021 She denies any chest pain [facility] [id number],C, s /p EPS with ablation 2020. Remains in NSR. Eliquis for AC. She wore holter, pending results [facility] [id number],C, H er updated medication list for this problem includes: Crestor 10 Mg Tablet (Rosuvastatin) ..... 1 tablet once a day Juan Johnstonzai [id number],C,No sxs curren rk [place] [id number],C, N ormal routine stress test with good exercise capacity 10/02/20. She denies any chest pain Juan estrella [id number],C,None seen on recent tele Juanyolanda [place]aird [id number],C, s /p EPS with ablation. Remains in NSR. Eliquis for AC. Juan Cullen [id number],S,R epeat monitor in one year. Her updated medication list for this problem includes: Diltiazem Hcl 30 Mg Tablet (Diltiazem hcl) ..... 1 tablet by mouth twice a day Michelle Marvin WAITE [id number],S, Michelle Rouse [place] ROSTER CLERK [id number],S, Michelle Rouse [place] ROSTER CLERK [id number],B, Michelle Rouse [place] ROSTER CLERK [id number],C,will refill o ne month Xanax Michelle Wong RAVINDRA [id number],C,s /p EPS with ablation. Remains in NSR. Eliquis for AC. Will check one week monitor. No evidence of an aneurysm of the abdominal aorta and common iliac arteries. Plaque is demonstrated throughout Michelle Marvin WAITE [id number],S, Michelle Rouse [place] ROSTER CLERK [id number],S,T he Patient was reencouraged to stop smoking. Michelle Marvin WAITE [id number],C, C essation strongly encouraged. Armin Fragoso [id number],C, N ormal routine stress test with good exercise capacity 10/02/20. Armin Fragoso [id number],B, T oscar monitor showed SR with SVT. S /p EPS and ablation for clearly documented multiple recurrences of arrhythmia. Found to be in atrial fibrillation during procedure and underwent synchronized cardioversion prior to ablation w/o complication Diltiazem 30mg BID, eliquis SR on EKG today Armin Fragoso [id number],B,Resolved post ablation and EPS Arcelia Bermeo ROSTER CLERK [id number],B, T oscar monitor showed SR with SVT. S /p EPS and ablation for clearly documented multiple recurrences of arrhythmia. Diltiazem 30mg BID, eliquis SR on EKG today Arcelia Bermeo ROSTER CLERK Telehealth - Cleared for colonoscopy. letter to [...] NSR. Eliquis for AC. Orders: E KG (CPT-15674) M onitor - Telemetry (Mobile Cardiac) (CPT-18414) A trista Duplex Ultrasound (CPT-70383) 9 6378 MOD 30-39min (CPT-99875) C omplex e/m visit add on (G2211) Kristopher Plummer MD Electrophysiology:Sh e has mild regurgitation on Echo today, BP elevated as well, will start Losartan 25 mg for BP control. Orders: C omplete Echo (64008) A trista Duplex Ultrasound (CPT-04311) 9 9214 MOD 30-39min (CPT-16646) C omplex e/m visit add on (G2) Juan Johnstonzai Electrophysiology: H er updated medication list for this problem includes: Crestor 10 Mg Tablet (Rosuvastatin) ..... 1 tablet once a day Juanyolanda Johnstonzai [facility] r are episodes [facility]: N ormal routine stress test with good exercise capacity 10/02/20. E cho EF normal 2021 She denies any chest pain [facility]: n o episodes Orders: M onitor - Telemetry (Mobile Cardiac) (CPT-06088) A trista Duplex Ultrasound (CPT-80986) 9 9214 MOD 30-39min (CPT-82129) C omplex e/m visit add on (G2) Juan Johnstonzai Electrophysiology:Th is visit has been a part of the consistent, comprehensive, and ongoing management of the chronic medical condition(s) listed above for the patient. s/p EPS with ablation 2020. Remains in NSR. Eliquis for AC. Orders: E KG (CPT-45365) M onitor - Telemetry (Mobile Cardiac) (CPT-61319) A trista Duplex Ultrasound (CPT-99169) 9 9214 MOD 30-39min (CPT-83780) C omplex e/m visit add on () Juan Johnstonzai Electrophysiology:Maxx qureshi was advised to stop smoking. [facility]: n o episodes [facility]: H er updated medication list for this problem includes: Crestor 10 Mg Tablet (Rosuvastatin) ..... 1 tablet once a day [facility]:ra re episodes [facility] Elect[facility]: N ormal routine stress test with good exercise capacity 10/02/20. E cho EF normal 2021 She denies any chest pain [facility]: s /p EPS with ablation 2020. Remains in NSR. Eliquis for AC. She wore holter, pending results [facility] Electrophysiology: H er updated medication list for this problem includes: Crestor 10 Mg Tablet (Rosuvastatin) ..... 1 tablet once a day [facility] Electrophysiology:No sxs current ly [facility] Electrophysiology: N ormal routine stress test with good exercise capacity 10/02/20. She denies any chest pain [facility] Electrophysiology:None seen on r ecent tele [facility] Electrophysiology: s /p EPS with ablation. Remains in NSR. Eliquis for AC. [facility] Electrophysiology:Re peat monitor in one year. Her updated medication list for this problem includes: Diltiazem Hcl 30 Mg Tablet (Diltiazem hcl) ..... 1 tablet by mouth twice a day Michelle Wong NP Electrophysiology Michelle hu NP Electrophysiology Michelel hu NP Electrophysiology Michelle Napoleon hu NP [...] Electrophysiology:Resolved post ablation and EPS Arcelia Bermeo ROSTER CLERK Electrophysiology: T oscar monitor showed SR with SVT. S /p EPS and ablation for clearly documented multiple recurrences of arrhythmia. Diltiazem 30mg BID, eliquis SR on EKG today Arcelia Bermeo ROSTER CLERK Electrophysiology fo llow up : T oscar [...] mouth daily Orders: 9 9214 MOD 30-39min (CPT-85873) C T Cardiac with contrast (Pre-Ablation) (CPT-76429) Armin Fragoso Electrophysiology fo llow up : [...] fatigue O rders: S leep Study Home (CPT-13798) Vickikristal [place] [facility]ital Follow up 15: H er updated medication list for this problem includes: Diltiazem Hcl 30 Mg Oral Tablet (Diltiazem hcl) ..... One tab by mouth every 8 hours (three times daily) Aspirin 81 81 Mg Oral Tablet Delayed Release (Aspirin) ..... One tab by mouth daily Orders: E KG (CPT-81902) S tress Routine (CPT-72307) M onitor - Telemetry (Mobile Cardiac) (CPT-20936) Alejobaljit [place] [facility]ital Follow up [...] by mouth daily Orders: S tress Routine (CPT-32258) M onitor - Telemetry (Mobile Cardiac) (CPT-43399) Armin [place] Date Name Aorta Duplex Ultraso [...] on Kristopher Plummer MD completed EKG Kristopher Plummer MD comp leted EKG Kristopher Plummer MD comp leted EKG Kristopher Plummer MD comp leted EKG Kristopher Plummer MD comp leted EKG Kristopher Plummer MD comp leted Event Monitor Kristopher Plummer MD c ompleted EKG Kristopher Plummer MD comp leted EKG Kristopher Plummer MD comp leted
[2024-07-25 00:23] LABS: Free T4 Free Thyroxine Reflex 0.97 ng/dL (0.78-2.19)
[2024-07-25 02:22] LABS: Total Triiodothyronine (T3) 1.31 NG/ML (0.97-1.69)
== END 2024-07-24 11:01 | disposition home or self-care (01) ==
LOC: ANHGOSHLAB 11:01
PROVIDERS: PCP Nurse Practitioner; Visit Provider Nurse Practitioner
DX: E03.9 Hypothyroidism, unspecified (principal)
CPT/HCPCS: 36415; 84439; 84443; 84480

== ENCOUNTER 2024-12-07 11:04 | Outpatient (CLI) | payer MEDICARE, SELFPAY ==
[2024-12-07 18:50] LABS: Hematocrit 42.4 % (37.0-47.0); Hemoglobin 13.4 g/dL (12.0-15.0); Mean Corpuscular HGB Conc 31.6 g/dl (32-36); Mean Corpuscular Hemoglobin 29.3 pg (26-34); Mean Corpuscular Volume 92.8 fl (80-100); Platelet Count Result 247 k/mm3 (150-375); Red Blood Count 4.57 M/mm3 (4.2-5.4); White Blood Count 4.5 K/mm3 (4.5-10.0)
[2024-12-07 18:57] LABS: Alanine Aminotransferase 16 U/L (6-35); Albumin Level 4.4 g/dL (3.5-5.1); Alkaline Phosphatase 31 U/L (38-126); Anion Gap 6 mmol/L (4-12); Aspartate Amino Transferase 36 U/L (14-36); Bilirubin,Total 0.5 mg/dL (0.2-1.3); Blood Urea Nitrogen 19 mg/dL (7-17); Calcium 9.7 mg/dL (8.4-10.2); Carbon Dioxide 28 mmol/L (22-30); Chloride 103 mmol/L (98-107); Cholesterol 197 mg/dL (0-200); Estimated Glomerular Filt Rate > 60; Glucose 85 mg/dL (65-110); HDL Direct 90 mg/dL; Potassium 4.2 mmol/L (3.4-5.0); Sodium 137 mmol/L (137-145); Total Protein 7.5 g/dL (6.3-8.2); Triglycerides 66 mg/dL (<150)
[2024-12-07 19:31] LABS: Thyroid Stimulating Hormone 2.990 uIU/mL (0.465-4.680)
[2024-12-07 21:49] LABS: Free T4 Free Thyroxine 1.25 ng/dL (0.78-2.19)
== END 2024-12-07 11:05 | disposition home or self-care (01) ==
LOC: ANHGOSHLAB 11:05
PROVIDERS: PCP Family Medicine; Visit Provider Nurse Practitioner
DX: I48.91 Unspecified atrial fibrillation (principal); E03.9 Hypothyroidism, unspecified; E55.9 Vitamin D deficiency, unspecified; E78.00 Pure hypercholesterolemia, unspecified; E78.5 Hyperlipidemia, unspecified
CPT/HCPCS: 36415; 80053; 80061; 82306; 84439; 84443; 85027

== ENCOUNTER 2025-04-19 10:52 | Outpatient (CLI) | payer MEDICARE, SELFPAY ==
[2025-04-19 12:57] LABS: Alanine Aminotransferase 17 U/L (6-35); Albumin Level 4.5 g/dL (3.5-5.1); Alkaline Phosphatase 47 U/L (38-126); Anion Gap 6 mmol/L (4-12); Aspartate Amino Transferase 45 U/L (14-36); Bilirubin,Total 0.5 mg/dL (0.2-1.3); Blood Urea Nitrogen 18 mg/dL (7-17); Calcium 9.3 mg/dL (8.4-10.2); Carbon Dioxide 29 mmol/L (22-30); Chloride 102 mmol/L (98-107); Estimated Glomerular Filt Rate > 60; Glucose 81 mg/dL (65-110); Magnesium 2.3 mg/dL (1.6-2.3); Potassium 4.0 mmol/L (3.4-5.0); Sodium 137 mmol/L (137-145); Total Protein 7.9 g/dL (6.3-8.2)
[2025-04-19 13:57] LABS: Vitamin B12 635.0 pg/mL (239-931)
== END 2025-04-19 10:53 | disposition home or self-care (01) ==
LOC: ANHGOSHLAB 10:52
PROVIDERS: PCP Family Medicine; Visit Provider Nurse Practitioner Family
DX: I48.0 Paroxysmal atrial fibrillation (principal); E78.00 Pure hypercholesterolemia, unspecified
CPT/HCPCS: 36415; 80053; 82607; 83735